=== PATIENT | male | born 1955 | race Two or more races ===

== ENCOUNTER 2023-07-11 01:56 | Emergency (ER) | payer OTHER ==
[~2023-07-11] VITALS: Ht 165.1 cm; Wt 95.4 kg
[2023-07-11] MEDS ORDERED: PANT40TA2 PO (03:24)
[2023-07-11] MEDS: DONNATAL 5ml ORAL Elix (BELLADONNA ALK-PHENOBARB) PO ONE (03:30)
[2023-07-11 03:50] VITALS: BP 127/76; TEMP 97.8; O2SAT 97
[2023-07-11] MEDS: MAALOX PLUS or MAALOX 30 ML PO ONE (04:00)
[2023-07-11] MEDS: LIDOCAINE VISCOUS 2% 15ML UD PO ONE (04:01)
[2023-07-11 04:05] VITALS: PULSE 88; RESP 18
== END 2023-07-11 04:07 | disposition home or self-care (01) ==
LOC: ER 01:56
DX: K21.9 Gastro-esophageal reflux disease without esophagitis (principal); E78.5 Hyperlipidemia, unspecified
CPT/HCPCS: 93005